=== PATIENT | female | born 1960 | race Caucasian/White ===

== ENCOUNTER 2019-01-27 17:54 | Emergency (ER) | payer BC ==
[2019-01-27 18:43] LABS: Absolute Lymphocytes (CBC) 3.1 K/uL (0.7-4.9); Basophils % 1.4 % (0-1.3); Eosinophils % 3.3 % (0-4.4); Hematocrit 42.2 % (36.0-45.0); Lymphocytes % 47.4 % (15.3-44.8); MPV 8.9 fL (7.6-11.3); Monocytes % 4.9 % (3.3-12.3); Protime INR 0.95; RBC Red Blood Cell Count 4.41 M/uL (3.86-4.86)
[2019-01-27 19:07] LABS: ALT/SGPT 25 U/L (12-78); AST/SGOT 25 U/L (15-37); Albumin 4.1 g/dL (3.4-5.0); Alkaline Phosphatase 56 U/L (45-117); BUN Blood Urea Nitrogen 12 mg/dL (7-18); Bicarbonate 28 mmol/L (21-32); Bilirubin Direct 0.1 mg/dL (0-0.2); Bilirubin Total 0.6 mg/dL (0.2-1.0); Glucose Level 90 mg/dL (74-106); Magnesium 2.4 mg/dL (1.8-2.4); NT PRO-BNP 32 pg/mL (<125); Potassium 3.4 mmol/L (3.5-5.1); Protein, Total 7.4 g/dL (6.4-8.2); Sodium Level 141 mmol/L (136-145); Troponin (Emerg Dept Use Only) < 0.02 ng/mL (0.0-0.045)
[2019-01-27 19:15] LABS: Blood Morphology Comment NOT SEEN (NOT SEEN); Platelet Estimate ADEQ
--- NOTE | 2019-01-27 19:20 | RAD REPORT ---
EXAM DESCRIPTION: Tracy Single View01/27/2019 7:05 pm CLINICAL HISTORY: Chest pain COMPARISON: 2017 FINDINGS: The lungs appear clear of acute infiltrate. The heart is upper limits normal size IMPRESSION: No acute abnormalities displayed
[2019-01-27] MEDS ORDERED: FENTANYL CITR 100 MCG/2 ML ONE (21:06)
[2019-01-27] MEDS ORDERED: ONDANSETRON 4 MG/2 ML VIAL ONE (21:51)
--- NOTE | 2019-01-27 23:03 | ER ---
Nurse's Notes [facility] Name: Candice Vega Age: 58 yrs Sex: Female : 1960 Arrival Date: 01/27/2019 Time: 17:55 Bed 27 Private MD: Gee Guajardo F Diagnosis: Pain in left arm Presentation: 01/27 18:00 Presenting complaint: Patient states: pain to left scapula to left shoulder and pt c/o aa5 pain to left side of chest and radiating to left arm. Pt c/o nausea, denies vomiting. Transition of care: patient was not received from another setting of care. Onset of symptoms was January 27, 2019. Risk Assessment: Do you want to hurt yourself or someone else? Patient reports no desire to harm self or others. Initial Sepsis Screen: Does the patient meet any 2 criteria? No. Patient's initial sepsis screen is negative. Does the patient have a suspected source of infection? No. Patient's initial sepsis screen is negative. Care prior to arrival: None. 18:00 Method Of Arrival: Ambulatory aa5 18:00 Acuity: VICTOR MANUEL 2 aa5 Historical: - Allergies: 18:03 Azithromycin; aa5 18:03 Codeine; aa5 18:03 PENICILLINS; aa5 18:03 mushrooms; aa5 - Home Meds: 18:03 lisinopril 10 mg Oral tab 1 tab once daily [Active]; levothyroxine oral 1.25 once daily aa5 [Active]; - PMHx: 18:03 Hypertension; Hypothyroidism; DVT; PE; aa5 - PSHx: 18:03 lap band; Knee surgery; Cholecystectomy; left leg- tumor removed; Thyroidectomy; aa5 Hysterectomy; ; Appendectomy; Tonsillectomy; - Immunization history:: Adult Immunizations up to date. - Social history:: Smoking status: Patient/guardian denies using tobacco. - Ebola Screening: : No symptoms or risks identified at this time. Screenin:25 Abuse screen: Denies threats or abuse. Denies injuries from another. Nutritional rv screening: No deficits noted. Tuberculosis screening: No symptoms or risk factors identified. Fall Risk None identified. Assessment: 18:23 General: Appears in no apparent distress. uncomfortable, Behavior is calm, cooperative. rv Pain: Complains of pain in back Pain radiates to chest and left arm Pain began 1 day ago. Neuro: Level of Consciousness is awake, alert, obeys commands, Oriented to person, place, time, situation. Cardiovascular: Patient's skin is warm and dry. Cardiovascular: Rhythm is regular. Respiratory: Airway is patent. GI: No signs and/or symptoms were reported involving the gastrointestinal system. : No signs and/or symptoms were reported regarding the genitourinary system. EENT: No signs and/or symptoms were reported regarding the EENT system. Derm: Skin is intact. 20:00 Reassessment: Patient appears in no apparent distress at this time. No changes from ca1 previously documented assessment. Patient and/or family updated on plan of care and expected duration. Pain level reassessed. Patient is alert, oriented x 3, equal unlabored respirations, skin warm/dry/pink. Vital Signs: 18:03 BP 162 / 92; Pulse 58; Resp 16 S; Temp 98.6(TE); Pulse Ox 98% on R/A; Weight 95.25 kg aa5 (R); Height 5 ft. 3 in. (160.02 cm) (R); Pain 7/10; 19:00 BP 145 / 83; Pulse 55; Resp 15; Pulse Ox 98% ; ca1 20:00 BP 147 / 82; Pulse 56; Resp 15; Pulse Ox 98% on R/A; ca1 21:00 BP 132 / 80; Pulse 51; Resp 16; Pulse Ox 96% on R/A; ca1 22:00 BP 110 / 61; Pulse 49; Resp 15; Pulse Ox 96% on R/A; rv 23:00 BP 109 / 69; Pulse 50; Resp 15; Temp 98.4; Pulse Ox 97% on R/A; rv 18:03 Body Mass Index 37.20 (95.25 kg, 160.02 cm) aa5 ED Course: 17:55 Patient arrived in ED. rg4 17:56 Gee Guajardo MD is Private Physician. rg4 18:00 Triage completed. aa5 18:00 Arm band placed on. aa5 18:19 Gerson Johnston, ETHAN is Primary Nurse. rv 18:19 EKG done, by ED staff, reviewed by John STANFORD. Inserted saline lock: 20 gauge in rv right antecubital area, using aseptic technique. Blood collected. 18:25 Patient has correct armband on for positive identification. Placed in gown. Bed in low rv position. Call light in reach. Side rails up X 1. Adult w/ patient. six color press operator on. Pulse ox on. NIBP on. 18:26 John English PA is PHCP. jr8 18:26 Christophe Herrera MD is Attending Physician. jr8 18:26 Patient maintains SpO2 saturation greater than 95% on room air. rv 19:06 John English PA is PHCP. jr8 19:07 Christophe Herrera MD is Attending Physician. jr8 19:11 XRAY Chest (1 view) In Process Unspecified. EDMS 21:11 CT completed. Patient tolerated procedure well. Patient moved to CT. Patient moved back de from CT. 21:18 CT Chest For PE Angio In Process Unspecified. EDMS 23:00 Gee Guajardo MD is Referral Physician. jr8 23:00 Peter Silverman MD is Referral Physician. jr8 23:13 No provider procedures requiring assistance completed. IV discontinued, intact, rv bleeding controlled, No redness/swelling at site. Pressure dressing applied. Administered Medications: 20:52 Drug: fentaNYL (PF) 50 mcg Route: IVP; Site: right antecubital; ca1 23:12 Follow up: Response: Pain is decreased rv 22:00 Drug: Zofran 4 mg Route: IVP; Site: right antecubital; rv 23:13 Follow up: Response: No adverse reaction; Marked relief of symptoms rv Outcome: 23:00 Discharge ordered by . jr8 23:13 Discharged to home ambulatory. rv 23:13 Condition: improved 23:13 Discharge instructions given to patient, family, Instructed on discharge instructions, follow up and referral plans. medication usage, Demonstrated understanding of instructions, follow-up care, medications, Prescriptions given X 3. 23:14 Patient left the ED. rv Signatures: Dispatcher [employer] EDRI Margarita Lee RN RN aa5 John English PA PA jr8 Afia Pope rg4 Braxton Aguilar Ronaldo, RN RN rv Ebony Rosario RN RN ca1
--- NOTE | 2019-01-27 23:03 | EDPHYS ---
Physician Documentation [facility] Name: Candice Vega Age: 58 yrs Sex: Female : 1960 Arrival Date: 01/27/2019 Time: 17:55 Bed 27 Private MD: Gee Guajardo F ED Physician Christophe Herrera HPI: 01/27 20:15 This 58 yrs old Female presents to ER via Ambulatory with complaints of Chest jr8 Pain, Back Pain, Nausea, Arm Pain. 20:15 left upper back pain x 1 week with radiation to left arm. Now with radiation to left jr8 anterior chest since last night. Onset: The symptoms/episode began/occurred acutely, 1 week(s) ago, and became worse last night. Severity of symptoms: At their worst the symptoms were moderate in the emergency department the symptoms are unchanged. The patient has not experienced similar symptoms in the past. The patient has not recently seen a physician. Historical: - Allergies: 18:03 Azithromycin; aa5 18:03 Codeine; aa5 18:03 PENICILLINS; aa5 18:03 mushrooms; aa5 - Home Meds: 18:03 lisinopril 10 mg Oral tab 1 tab once daily [Active]; levothyroxine oral 1.25 once daily aa5 [Active]; - PMHx: 18:03 Hypertension; Hypothyroidism; DVT; PE; aa5 - PSHx: 18:03 lap band; Knee surgery; Cholecystectomy; left leg- tumor removed; Thyroidectomy; aa5 Hysterectomy; ; Appendectomy; Tonsillectomy; - Immunization history:: Adult Immunizations up to date. - Social history:: Smoking status: Patient/guardian denies using tobacco. - Ebola Screening: : No symptoms or risks identified at this time. ROS: 20:15 Constitutional: Negative for fever, chills, and weight loss, Eyes: Negative for injury, jr8 pain, redness, and discharge, ENT: Negative for injury, pain, and discharge, Neck: Negative for injury, pain, and swelling, Respiratory: Negative for shortness of breath, cough, wheezing, and pleuritic chest pain, Abdomen/GI: Negative for abdominal pain, nausea, vomiting, diarrhea, and constipation, Skin: Negative for injury, rash, and discoloration, Neuro: Negative for headache, weakness, numbness, tingling, and seizure. 20:15 Cardiovascular: Positive for chest pain, Negative for edema, orthopnea, palpitations. 20:15 Back: Positive for pain at rest, pain with movement, Negative for injury or acute deformity, decreased range of motion. 20:15 MS/extremity: Positive for pain, Negative for injury or acute deformity, decreased range of motion, deformity, paresthesias, tingling. Exam: 20:15 Constitutional: This is a well developed, well nourished patient who is awake, alert, jr8 and in no acute distress. Head/Face: Normocephalic, atraumatic. Eyes: Pupils equal round and reactive to light, extra-ocular motions intact. Lids and lashes normal. Conjunctiva and sclera are non-icteric and not injected. Cornea within normal limits. Periorbital areas with no swelling, redness, or edema. ENT: Nares patent. No nasal discharge, no septal abnormalities noted. Tympanic membranes are normal and external auditory canals are clear. Oropharynx with no redness, swelling, or masses, exudates, or evidence of obstruction, uvula midline. Mucous membranes moist. Neck: Trachea midline, no thyromegaly or masses palpated, and no cervical lymphadenopathy. Supple, full range of motion without nuchal rigidity, or vertebral point tenderness. No Meningismus. Chest/axilla: Normal chest wall appearance and motion. Nontender with no deformity. No lesions are appreciated. Cardiovascular: Regular rate and rhythm with a normal S1 and S2. No gallops, murmurs, or rubs. Normal PMI, no JVD. No pulse deficits. Respiratory: Lungs have equal breath sounds bilaterally, clear to auscultation and percussion. No rales, rhonchi or wheezes noted. No increased work of breathing, no retractions or nasal flaring. Abdomen/GI: Soft, non-tender, with normal bowel sounds. No distension or tympany. No guarding or rebound. No evidence of tenderness throughout. Back: No spinal tenderness. No costovertebral tenderness. Full range of motion. Skin: Warm, dry with normal turgor. Normal color with no rashes, no lesions, and no evidence of cellulitis. MS/ Extremity: Pulses equal, no cyanosis. Neurovascular intact. Full, normal range of motion. Neuro: Awake and alert, GCS 15, oriented to person, place, time, and situation. Cranial nerves II-XII grossly intact. Motor strength 5/5 in all extremities. Sensory grossly intact. Cerebellar exam normal. Normal gait. Vital Signs: 18:03 BP 162 / 92; Pulse 58; Resp 16 S; Temp 98.6(TE); Pulse Ox 98% on R/A; Weight 95.25 kg aa5 (R); Height 5 ft. 3 in. (160.02 cm) (R); Pain 7/10; 19:00 BP 145 / 83; Pulse 55; Resp 15; Pulse Ox 98% ; ca1 20:00 BP 147 / 82; Pulse 56; Resp 15; Pulse Ox 98% on R/A; ca1 21:00 BP 132 / 80; Pulse 51; Resp 16; Pulse Ox 96% on R/A; ca1 22:00 BP 110 / 61; Pulse 49; Resp 15; Pulse Ox 96% on R/A; rv 23:00 BP 109 / 69; Pulse 50; Resp 15; Temp 98.4; Pulse Ox 97% on R/A; rv 18:03 Body Mass Index 37.20 (95.25 kg, 160.02 cm) aa5 MDM: 18:26 Patient medically screened. jr8 20:15 Data reviewed: vital signs, nurses notes, EKG. Data interpreted: Pulse oximetry: on jr8 room air is 98 %. Interpretation: normal. 22:55 Data reviewed: lab test result(s), radiologic studies, CT scan, plain films. jr8 Counseling: I had a detailed discussion with the patient and/or guardian regarding: the historical points, exam findings, and any diagnostic results supporting the discharge/admit diagnosis, lab results, radiology results, the need for outpatient follow up, a director of rehabilitation and wellness, a neurologist, to return to the emergency department if symptoms worsen or persist or if there are any questions or concerns that arise at home. Response to treatment: the patient's symptoms have mildly improved after treatment. ED course: Discussed with patient that this is more then likely neuropathic like pain. No acute findings on labs or imaging. Did find mild aortic root dilation which was discussed with patient and family and need for f/u with director of rehabilitation and wellness for routine evaluation to insure it does not enlarge. Family and patient good with plan and will f/u. If pain does not get better requested that she seen neurologist which she said she would do as well . 01/27 18:26 Order name: Basic Metabolic Panel; Complete Time: 19:08 01/27 18:26 Order name: CBC with Diff; Complete Time: 19:19 01/27 18:26 Order name: LFT's; Complete Time: 19:08 01/27 18:26 Order name: Magnesium; Complete Time: 19:08 01/27 18:26 Order name: NT PRO-BNP; Complete Time: 19:08 01/27 18:26 Order name: PT-INR 01/27 18:26 Order name: Troponin (emerg Dept Use Only); Complete Time: 19:08 01/27 18:26 Order name: XRAY Chest (1 view); Complete Time: 19:34 01/27 18:26 Order name: EKG; Complete Time: 18:28 01/27 18:26 Order name: Cardiac monitoring; Complete Time: 18:46 01/27 18:50 Order name: Manual Differential; Complete Time: 19:19 EDMS 01/27 20:47 Order name: CT Chest For PE Angio 01/27 18:26 Order name: EKG - Nurse/Tech; Complete Time: 18:46 01/27 18:26 Order name: IV Saline Lock; Complete Time: 18:46 01/27 18:26 Order name: Labs collected and sent; Complete Time: 18:46 01/27 18:26 Order name: O2 Per Protocol; Complete Time: 18:46 01/27 18:26 Order name: O2 Sat Monitoring; Complete Time: 18:46 EC:15 Rate is 55 beats/min. Rhythm is regular. WI interval is normal at 144 msec. QRS jr8 interval is normal at 86 msec. QT interval is normal at 361 msec. No Q waves. T waves are Normal. No ST changes noted. Clinical impression: Sinus bradycardia. Administered Medications: 20:52 Drug: fentaNYL (PF) 50 mcg Route: IVP; Site: right antecubital; ca1 23:12 Follow up: Response: Pain is decreased rv 22:00 Drug: Zofran 4 mg Route: IVP; Site: right antecubital; rv 23:13 Follow up: Response: No adverse reaction; Marked relief of symptoms rv Disposition: 01/27/19 23:00 Discharged to Home. Impression: Pain in left arm. - Condition is Stable. - Discharge Instructions: Musculoskeletal Pain, Pain Without a Known Cause. - Prescriptions for Mobic 7.5 mg Oral Tablet - take 1 tablet by ORAL route once daily take with food; 20 tablet. Skelaxin 800 mg Oral Tablet - take 1 tablet by ORAL route every 8 hours As needed; 30 tablet. Medrol (Santos) 4 mg Oral Tablets, Dose Pack - take 1 tablet by ORAL route as directed - follow package instructions; 1 packet. - Medication Reconciliation Form, Thank You Letter, Antibiotic Education, Prescription Opioid Use, Work release form form. - Follow up: Gee Guajardo MD; When: 5 - 6 days; Reason: Recheck today's complaints, Continuance of care, Re-evaluation by your physician. Follow up: Peter Silverman MD; When: 2 - 3 days; Reason: Recheck today's complaints, Continuance of care, Re-evaluation by your physician. - Problem is new. - Symptoms have improved. Addendum: 02/03/2019 19:00 Co-signature as Attending Physician, Christophe Herrera MD Available for consultation at p s1 all times . Signatures: Dispatcher [employer] Margarita Thompson RN RN aa5 John English PA PA jr8 Christophe Herrera MD MD ps1 Gerson Johnston RN RN rv Ebony Rosario RN RN ca1 Corrections: (The following items were deleted from the chart) 01/27 23:14 23:00 01/27/2019 23:00 Discharged to Home. Impression: Pain in left arm. Condition is rv Stable. Forms are Medication Reconciliation Form, Thank You Letter, Antibiotic Education, Prescription Opioid Use. Follow up: Gee Guajardo; When: 5 - 6 days; Reason: Recheck today's complaints, Continuance of care, Re-evaluation by your physician. Follow up: Peter Silverman; When: 2 - 3 days; Reason: Recheck today's complaints, Continuance of care, Re-evaluation by your physician. Problem is new. Symptoms have improved. jr8
--- NOTE | 2019-01-28 08:14 | EKG ---
Test Date: 2019-01-27 Test Time: 18:09:35 Adzing And Boring Machine Helper: BRIGITTE MEASUREMENT RESULTS: Intervals: Rate: 55 AL: 144 QRSD: 86 QT: 378 QTc: 361 [place]: P: 49 AL: 144 QRS: -31 T: 57 INTERPRETIVE STATEMENTS: Sinus bradycardia Left axis deviation Nonspecific T wave abnormality Abnormal ECG Electronically Signed On 01-28-19 08:11:38 CDT by Brain Tolbert
--- NOTE | 2019-01-28 08:14 | EKG ---
Test Date: 2019-01-27 Test Time: 18:09:03 Wireless Sales Consultant: BRIGITTE MEASUREMENT RESULTS: Intervals: Rate: 52 TN: 138 QRSD: 84 QT: 400 QTc: 372 [place]: P: 53 TN: 138 QRS: -26 T: -21 INTERPRETIVE STATEMENTS: Sinus bradycardia with sinus arrhythmia Nonspecific T wave abnormality Abnormal ECG Compared to ECG 11/11/2016 12:32:44 T-wave abnormality now present Sinus rhythm no longer present Left-axis deviation no longer present Electronically Signed On 01-28-19 08:11:39 CDT by Brain Tolbert
[2019-01-28 09:14] VITALS: BP 109/69; TEMP 98.4; O2SAT 97
--- NOTE | 2019-01-28 09:53 | RAD REPORT ---
EXAM DESCRIPTION: Copy and paste - Chest For Pe Angio - 01/28/2019 2:46 am CLINICAL HISTORY: 58 years Female CHEST PAIN COMPARISON: None TECHNIQUE: CT angiogram of the chest was performed. Images were obtained in axial, sagittal, and cor onal planes. Intravenous contrast was administered. This exam was performed according to our departmental dose-optimization program which includes use of Automated Exposure Control, adjustment of the mA and/or kV according to patient size and/or use of i terative reconstruction technique. FINDINGS: No filling defects pulmonary arteries bilaterally. Aortic root is dilated measuring 4.3 cm in greatest dimension. No aortic dissection. Enlarged heart. No pericardial or pleural effusions bilaterally. No pneumothorax. Increased pulmonary vascularity. Mild groundglass attenuation lung calles bilaterall y. No consolidation. No lung parenchymal infiltrates or nodules seen. Bullous change lateral left upp er lobe. Surgical clips thoracic inlet. No adenopathy. No acute osseous abnormality. Prior cholecystectomy. No abnormality upper abdomen. IMPRESSION: No evidence for pulmonary embolus. Dilated aortic root with no evidence for aortic disse ction. Moderate pulmonary congestion. No infiltrates seen. Electronically signed by: Adrienne Aviles MD 01/27/2019 9:39 PM CDT Due to temporary technical issues with the PACS/Fluency reporting system, reports are being signed by the in house radiologist as a courtesy to ensure prompt reporting. The interpreting radiologist is f ully responsible for the content of the report.
== END 2019-01-27 23:14 | disposition home or self-care (01) ==
LOC: ER 17:54
DX: M79.602 Pain in left arm (principal); I10 Essential (primary) hypertension; E03.9 Hypothyroidism, unspecified; Z86.718 Personal history of other venous thrombosis and embolism; Z86.711 Personal history of pulmonary embolism; Z88.1 Allergy status to other antibiotic agents; Z88.5 Allergy status to narcotic agent; Z88.0 Allergy status to penicillin
CPT/HCPCS: 36415; 71045; 71275; 80048; 80076; 83735; 83880; 84484; 85025; 85610; 93005; 96374; 96375; 99285; J2405; J3010; Q9967

== ENCOUNTER 2023-05-11 13:25 | Emergency (ER) | payer BC ==
--- OUTSIDE RECORDS SUMMARY | 2023-05-11 13:29 | XMS REPORT | Continuity of Care Document ---
:1960 Author Organization [facility] t Address [address] [facility] [place]. [address] [place] [id number] Care Team Providers Name Role Phone Pepe Brambila Attending Clinician Unavailable Payers Payer Name Policy Type Policy Number Effective Date Expiration Date S justus [employer] 6 [id number] 2020 Common [facility] t [employer] Shield of 00:00:00 - [facility] Problems Condition Condition Condition Status Onset Resolution Last Treating Co mments Source Name Details Category Date Date Treatment Clinician Date [id number] Subacute Problem Com mon [id number] vaginitis [facility] [id number] Recurrent Problem Com mon UTI [facility] [id number] Left flank Problem Com mon tenderness [facility] [id number] LUQ pain Problem Comm on [facility] [id number] Lower Problem Common urinary [facility] tract - 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[facility] 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 y [facility] [id number] History of Problem Co mmon pulmonary [facility] embolism - [facility] [id number] Morbid Problem Commo n 9104 (severe) Spirit obesity - [facility] due to [facility] [id number] PUD Problem Common (peptic Spirit ulcer - [facility] disease) [facility] [id number] Fatty Problem Common liver Spirit disease, - [facility] nonalcohol [facility] [id number] Postoperat Problem Com mon steffanie Spirit hypothyroi - [facility] dism [facility] [id number] History of Problem C ommon 08906 Graves' [facility] disease - [facility] Allergies, Adverse Reactions, Alerts Allergy Allergy Status Severity Reaction(s) Onset Inactive Treating Comm ents Source Name Type Date Date Clinician codeine codeine Active hives Common [facility] erythrom erythrom Active hives Common ycin ycin [facility] penicill penicill Active hives Common in G in G [facility] Social History Social Habit Start Date Stop Date Quantity Comments Source History of Tobacco Use Co mmon Spirit [facility] Sex Assigned At Com mon [facility] Smoking Status Start Date Stop Date Source Never Smoker [facility] Medications Ordered Filled Start Stop Current Ordering Indication Dosage Frequency Signature Comments Components Source Medication Medication Date Date Medication? Clinician (SIG) Name Name Cipro 500 Cipro 500 No 1{table BID Cipro 500 MG MG 2-13 t} MG 00:00: 00 Cipro 500 Cipro 500 0 No 1{table BID Cipro 500 MG MG 2-13 t} MG 00:00: 00 Alfuzosin Alfuzosin 2021-07- No 1{table QD Alfuzosin HCl ER 10 HCl ER 10 08-29 t_immed HCl ER 10 MG MG 00:00: 00:00 iately_ MG 00 :00 after_t he_same _meal} Alfuzosin Alfuzosin 2021-07- No 1{table QD Alfuzosin HCl ER 10 HCl ER 10 08-29 t_immed HCl ER 10 MG MG 00:00: 00:00 iately_ MG 00 :00 after_t he_same _meal} Alfuzosin Alfuzosin 2021-07- No 1{table QD Alfuzosin HCl ER 10 HCl ER 10 08-29 t_immed HCl ER 10 MG MG 00:00: 00:00 iately_ MG 00 :00 after_t he_same _meal} Alfuzosin Alfuzosin 2021-07- No 1{table QD Alfuzosin HCl ER 10 HCl ER 10 08-29 t_immed HCl ER 10 MG MG 00:00: 00:00 iately_ MG 00 :00 after_t he_same _meal} Clotrimazol Clotrimazol 2021-07- No 1{appli BID Clotrimazo e-Betametha e-Betametha 08-29 cation} le-Betamet sone 1-0.05 sone 1-0.05 00:00: 00:00 hasone % % 00 :00 1-0.05 % Clotrimazol Clotrimazol 2021-07- No 1{appli BID Clotrimazo e-Betametha e-Betametha 08-29 cation} le-Betamet sone 1-0.05 sone 1-0.05 00:00: 00:00 hasone % % 00 :00 1-0.05 % Alfuzosin Alfuzosin 2021- No 1{table QD Alfuzosin HCl ER 10 HCl ER 10 12-26 t_immed HCl ER 10 MG MG 00:00: 00:00 iately_ MG 00 :00 after_t he_same _meal} Alfuzosin Alfuzosin 2021- No 1{table QD Alfuzosin HCl ER 10 HCl ER 10 12-26 t_immed HCl ER 10 MG MG 00:00: 00:00 iately_ MG 00 :00 after_t he_same _meal} Alfuzosin Alfuzosin 2021-2021- No 1{table QD Alfuzosin HCl ER 10 HCl ER 10 12-26 t_immed HCl ER 10 MG MG 00:00: 00:00 iately_ MG 00 :00 after_t he_same _meal} Alfuzosin Alfuzosin 2021- No 1{table QD Alfuzosin HCl ER 10 HCl ER 10 12-26 t_immed HCl ER 10 MG MG 00:00: 00:00 iately_ MG 00 :00 after_t he_same _meal} Alfuzosin Alfuzosin 2021- No 1{table QD Alfuzosin HCl ER 10 HCl ER 10 12-26 t_immed HCl ER 10 MG MG 00:00: 00:00 iately_ MG 00 :00 after_t he_same _meal} Alfuzosin Alfuzosin 2021- No 1{table QD Alfuzosin HCl ER 10 HCl ER 10 12-26 t_immed HCl ER 10 MG MG 00:00: 00:00 iately_ MG 00 :00 after_t he_same _meal} Clotrimazol Clotrimazol 2021- No 1{appli QD Clotrimazo e-Betametha e-Betametha 12-26 cation_ le-Betamet sone 1-0.05 sone 1-0.05 00:00: 00:00 at_bedt hasone % % 00 :00 zachary} 1-0.05 % Clotrimazol Clotrimazol 2021- No 1{appli QD Clotrimazo e-Betametha e-Betametha 12-26 cation_ le-Betamet sone 1-0.05 sone 1-0.05 00:00: 00:00 at_bedt hasone % % 00 :00 zachary} 1-0.05 % Fluconazole Fluconazole 2021- No 1{table Fluconazol 150 MG 150 MG 10-20 t} e 150 MG 00:00: 00:00 00 :00 Sulfamethox Sulfamethox 2021- No 1{table BID Sulfametho azole-Trime azole-Trime 08-31 t} xazole-Tri thoprim thoprim 00:00: 00:00 methoprim 800-160 MG 800-160 MG 00 :00 800-160 MG Synthroid Synthroid No QD Synthroid 112 MCG 112 MCG 1-27 112 MCG 00:00: 00 Synthroid Synthroid No QD Synthroid 112 MCG 112 MCG 1-27 112 MCG 00:00: 00 Synthroid Synthroid No QD Synthroid 112 MCG 112 MCG 1-27 112 MCG 00:00: 00 Omeprazole Omeprazole No Omeprazole 20 MG 20 MG 20 MG Levothyroxi Levothyroxi No Levothyrox ne Sodium ne Sodium ine Sodium 125 MCG 125 MCG 125 MCG Levothyroxi Levothyroxi No QD Levothyrox ne Sodium ne Sodium ine Sodium 125 MCG 125 MCG 125 MCG Famotidine Famotidine No Famotidine 20 MG 20 MG 20 MG Lisinopril Lisinopril No Lisinopril 10 MG 10 MG 10 MG Ferrous Ferrous No 1{table QD Ferrous Sulfate 325 Sulfate 325 t} Sulfate (65 Fe) MG (65 Fe) MG 325 (65 Fe) MG Lisinopril Lisinopril No 1{table QD Lisinopril 10 MG 10 MG t} 10 MG Lisinopril Lisinopril No Lisinopril 10 MG 10 MG 10 MG Famotidine Famotidine No Famotidine 20 MG 20 MG 20 MG Omeprazole Omeprazole No Omeprazole 20 MG 20 MG 20 MG Levothyroxi Levothyroxi No Levothyrox ne Sodium ne Sodium ine Sodium 125 MCG 125 MCG 125 MCG Ferrous Ferrous No 1{table QD Ferrous Sulfate 325 Sulfate 325 t} Sulfate (65 Fe) MG (65 Fe) MG 325 (65 Fe) MG Lisinopril Lisinopril No 1{table QD Lisinopril 10 MG 10 MG t} 10 MG Famotidine Famotidine No Famotidine 20 MG 20 MG 20 MG Lisinopril Lisinopril No Lisinopril 10 MG 10 MG 10 MG Levothyroxi Levothyroxi No Levothyrox ne Sodium ne Sodium ine Sodium 125 MCG 125 MCG 125 MCG Omeprazole Omeprazole No Omeprazole 20 MG 20 MG 20 MG Lisinopril Lisinopril No 1{table QD Lisinopril 10 MG 10 MG t} 10 MG Ferrous Ferrous No 1{table QD Ferrous Sulfate 325 Sulfate 325 t} Sulfate (65 Fe) MG (65 Fe) MG 325 (65 Fe) MG Famotidine Famotidine No Famotidine 20 MG 20 MG 20 MG Ferrous Ferrous No 1{table QD Ferrous Sulfate 325 Sulfate 325 t} Sulfate (65 Fe) MG (65 Fe) MG 325 (65 Fe) MG Lisinopril Lisinopril No Lisinopril 10 MG 10 MG 10 MG Omeprazole Omeprazole No Omeprazole 20 MG 20 MG 20 MG Lisinopril Lisinopril No 1{table QD Lisinopril 10 MG 10 MG t} 10 MG Levothyroxi Levothyroxi No Levothyrox ne Sodium ne Sodium ine Sodium 125 MCG 125 MCG 125 MCG Lisinopril Lisinopril No 1{table QD Lisinopril 10 MG 10 MG t} 10 MG Levothyroxi Levothyroxi No Levothyrox ne Sodium ne Sodium ine Sodium 125 MCG 125 MCG 125 MCG Lisinopril Lisinopril No Lisinopril 10 MG 10 MG 10 MG Omeprazole Omeprazole No Omeprazole 20 MG 20 MG 20 MG Famotidine Famotidine No Famotidine 20 MG 20 MG 20 MG Lisinopril Lisinopril No 1{table QD Lisinopril 10 MG 10 MG t} 10 MG Famotidine Famotidine No Famotidine 20 MG 20 MG 20 MG Levothyroxi Levothyroxi No Levothyrox ne Sodium ne Sodium ine Sodium 125 MCG 125 MCG 125 MCG Omeprazole Omeprazole No Omeprazole 20 MG 20 MG 20 MG Lisinopril Lisinopril No Lisinopril 10 MG 10 MG 10 MG Omeprazole Omeprazole No Omeprazole 20 MG 20 MG 20 MG Levothyroxi Levothyroxi No Levothyrox ne Sodium ne Sodium ine Sodium 125 MCG 125 MCG 125 MCG Lisinopril Lisinopril No 1{table QD Lisinopril 10 MG 10 MG t} 10 MG Famotidine Famotidine No Famotidine 20 MG 20 MG 20 MG Lisinopril Lisinopril No Lisinopril 10 MG 10 MG 10 MG Famotidine Famotidine No Famotidine 20 MG 20 MG 20 MG Lisinopril Lisinopril No 1{table QD Lisinopril 10 MG 10 MG t} 10 MG Levothyroxi Levothyroxi No Levothyrox ne Sodium ne Sodium ine Sodium 125 MCG 125 MCG 125 MCG Lisinopril Lisinopril No Lisinopril 10 MG 10 MG 10 MG Omeprazole Omeprazole No Omeprazole 20 MG 20 MG 20 MG Omeprazole Omeprazole No Omeprazole 20 MG 20 MG 20 MG Levothyroxi Levothyroxi No Levothyrox ne Sodium ne Sodium ine Sodium 125 MCG 125 MCG 125 MCG Famotidine Famotidine No Famotidine 20 MG 20 MG 20 MG Lisinopril Lisinopril No Lisinopril 10 MG 10 MG 10 MG Lisinopril Lisinopril No Lisinopril 10 MG 10 MG 10 MG Famotidine Famotidine No Famotidine 20 MG 20 MG 20 MG Lisinopril Lisinopril No 1{table QD Lisinopril 10 MG 10 MG t} 10 MG Levothyroxi Levothyroxi No QD Levothyrox ne Sodium ne Sodium ine Sodium 100 MCG 100 MCG 100 MCG Omeprazole Omeprazole No Omeprazole 20 MG 20 MG 20 MG Lisinopril Lisinopril No Lisinopril 10 MG 10 MG 10 MG Famotidine Famotidine No Famotidine 20 MG 20 MG 20 MG Lisinopril Lisinopril No 1{table QD Lisinopril 10 MG 10 MG t} 10 MG Levothyroxi Levothyroxi No QD Levothyrox ne Sodium ne Sodium ine Sodium 100 MCG 100 MCG 100 MCG Omeprazole Omeprazole No Omeprazole 20 MG 20 MG 20 MG Lisinopril Lisinopril No Lisinopril 10 MG 10 MG 10 MG Lisinopril Lisinopril No 1{table QD Lisinopril 10 MG 10 MG t} 10 MG Omeprazole Omeprazole No Omeprazole 20 MG 20 MG 20 MG Levothyroxi Levothyroxi No QD Levothyrox ne Sodium ne Sodium ine Sodium 100 MCG 100 MCG 100 MCG Famotidine Famotidine No Famotidine 20 MG 20 MG 20 MG Omeprazole Omeprazole No Omeprazole 20 MG 20 MG 20 MG Levothyroxi Levothyroxi No QD Levothyrox ne Sodium ne Sodium ine Sodium 100 MCG 100 MCG 100 MCG Lisinopril Lisinopril No 1{table QD Lisinopril 10 MG 10 MG t} 10 MG Lisinopril Lisinopril No Lisinopril 10 MG 10 MG 10 MG Famotidine Famotidine No Famotidine 20 MG 20 MG 20 MG Levothyroxi Levothyroxi No Levothyrox ne Sodium ne Sodium ine Sodium 100 MCG 100 MCG 100 MCG Lisinopril Lisinopril No Lisinopril 10 MG 10 MG 10 MG Lisinopril Lisinopril No 1{table QD Lisinopril 10 MG 10 MG t} 10 MG Levothyroxi Levothyroxi No Levothyrox ne Sodium ne Sodium ine Sodium 100 MCG 100 MCG 100 MCG Famotidine Famotidine No Famotidine 20 MG 20 MG 20 MG Levothyroxi Levothyroxi No QD Levothyrox ne Sodium ne Sodium ine Sodium 100 MCG 100 MCG 100 MCG Omeprazole Omeprazole No Omeprazole 20 MG 20 MG 20 MG Lisinopril Lisinopril No Lisinopril 10 MG 10 MG 10 MG Lisinopril Lisinopril No 1{table QD Lisinopril 10 MG 10 MG t} 10 MG Levothyroxi Levothyroxi No Levothyrox ne Sodium ne Sodium ine Sodium 100 MCG 100 MCG 100 MCG Famotidine Famotidine No Famotidine 20 MG 20 MG 20 MG Levothyroxi Levothyroxi No QD Levothyrox ne Sodium ne Sodium ine Sodium 100 MCG 100 MCG 100 MCG Omeprazole Omeprazole No Omeprazole 20 MG 20 MG 20 MG Lisinopril Lisinopril No Lisinopril 10 MG 10 MG 10 MG Famotidine Famotidine No Famotidine 20 MG 20 MG 20 MG Lisinopril Lisinopril No 1{table QD Lisinopril 10 MG 10 MG t} 10 MG Levothyroxi Levothyroxi No QD Levothyrox ne Sodium ne Sodium ine Sodium 100 MCG 100 MCG 100 MCG Omeprazole Omeprazole No Omeprazole 20 MG 20 MG 20 MG Immunizations Ordered Filled Immunization Date Status Comments Sourc e Immunization Name Name Afluria Afluria 2021-04-27 Completed [facility] 14:49:00 - [facility] Afluria Afluria 2021-04-27 Completed [facility] 14:49:00 - [facility] Afluria Afluria 2021-04-27 Completed [facility] 14:49:00 - [facility] Afluria Afluria 2021-04-27 Completed [facility] 14:49:00 - [facility] Afluria Afluria 2021-04-27 Completed [facility] 14:49:00 - [facility] Afluria Afluria 2021-04-27 Completed [facility] 14:49:00 - [facility] Afluria Afluria 2021-04-27 Completed [facility] 14:49:00 - [facility] Afluria Afluria 2021-04-27 Completed [facility] 14:49:00 - [facility] Afluria Afluria 2021-04-27 Completed [facility] 14:49:00 - [facility] Afluria Afluria 2021-04-27 Completed [facility] 14:49:00 - [facility] Afluria Afluria 2021-04-27 Completed [facility] 14:49:00 - [facility] Afluria Afluria 2021-04-27 Completed [facility] 14:49:00 - [facility] Afluria Afluria 2021-04-27 Completed [facility] 14:49:00 - [facility] Afluria Afluria 2021-04-27 Completed [facility] 14:49:00 - [facility] Adacel (Tdap) Adacel (Tdap) 2020-10-28 Completed Common S pirit 15:20:00 - [facility] Adacel (Tdap) Adacel (Tdap) 2020-10-28 Completed Common S pirit 15:20:00 [facility] Adacel (Tdap) Adacel (Tdap) 2020-10-28 Completed Common S pirit 15:20:00 - [facility] Adacel (Tdap) Adacel (Tdap) 2020-10-28 Completed Common S pirit 15:20:00 - [facility] Adacel (Tdap) Adacel (Tdap) 2020-10-28 Completed Common S pirit 15:20:00 - [facility] Adacel (Tdap) Adacel (Tdap) 2020-10-28 Completed Common S pirit 15:20:00 - [facility] Adacel (Tdap) Adacel (Tdap) 2020-10-28 Completed Common S pirit 15:20:00 [facility] Adacel (Tdap) Adacel (Tdap) 2020-10-28 Completed Common S pirit 15:20:00 [facility] Adacel (Tdap) Adacel (Tdap) 2020-10-28 Completed Common S pirit 15:20:00 [facility] Adacel (Tdap) Adacel (Tdap) 2020-10-28 Completed Common S pirit 15:20:00 [facility] Adacel (Tdap) Adacel (Tdap) 2020-10-28 Completed Common S pirit 15:20:00 [facility] Adacel (Tdap) Adacel (Tdap) 2020-10-28 Completed Common S pirit 15:20:00 [facility] Adacel (Tdap) Adacel (Tdap) 2020-10-28 Completed Common S pirit 15:20:00 [facility] Adacel (Tdap) Adacel (Tdap) 2020-10-28 Completed Common S pirit 15:20:00 [facility] Afluria Afluria Unknown Completed [facility] Adacel (Tdap) Adacel (Tdap) Unknown Completed [facility] Afluria Afluria Unknown Completed [facility] Adacel (Tdap) Adacel (Tdap) Unknown Completed [facility] pirit [facility] Vital Signs Vital Name Observation Time Observation Value Comments Source height 2022-07-12 10:50:00 63 [in_i] [facility] weight 2022-07-12 10:50:00 231 [lb_av] [facility] temperature 2022-07-12 10:50:00 97.1 [degF] [facility] bmi 2022-07-12 10:50:00 40.92 kg/m2 Common S pirit - [facility] blood pressure 2022-07-12 10:50:00 138 mm[Hg] [facility] - systolic [facility] blood pressure 2022-07-12 10:50:00 72 mm[Hg] [facility] - diastolic [facility] height 2022-06-28 13:15:00 63 [in_i] Common S pirit - [facility] weight 2022-06-28 13:15:00 241 [lb_av] Common S pirit [facility] temperature 2022-06-28 13:15:00 97 [degF] Common S pirit [facility] bmi 2022-06-28 13:15:00 42.69 kg/m2 [facility] oximetry 2022-06-28 13:15:00 99 % Common S [facility] respiratory rate 2022-06-28 13:15:00 18 /min Comm on [facility] blood pressure 2022-06-28 13:15:00 160 mm[Hg] [facility] - systolic [facility] blood pressure 2022-06-28 13:15:00 75 mm[Hg] [facility] - diastolic [facility] height 2022-04-12 14:10:00 63 [in_i] Common [facility] weight 2022-04-12 14:10:00 238.7 [lb_av] Common [facility] - [facility] temperature 2022-04-12 14:10:00 97.1 [degF] Common S pirit [facility] bmi 2022-04-12 14:10:00 42.28 kg/m2 Common S [facility] oximetry 2022-04-12 14:10:00 96 % Common S [facility] respiratory rate 2022-04-12 14:10:00 17 /min Comm on [facility] blood pressure 2022-04-12 14:10:00 132 mm[Hg] [facility] - systolic [facility] blood pressure 2022-04-12 14:10:00 71 mm[Hg] Common [facility] - diastolic [facility] height 2021-12-27 16:20:00 63 [in_i] Common S pirit [facility] weight 2021-12-27 16:20:00 234.5 [lb_av] Common [facility] temperature 2021-12-27 16:20:00 97.8 [degF] Common S pirit [facility] bmi 2021-12-27 16:20:00 41.54 kg/m2 [facility] 2021-12-27 16:20:00 95 % Common S [facility] respiratory rate 2021-12-27 16:20:00 16 /min Comm on [facility] blood pressure 2021-12-27 16:20:00 135 mm[Hg] Common [facility] - systolic [facility] blood pressure 2021-12-27 16:20:00 76 mm[Hg] Common [facility] - diastolic [facility] height 2021-12-26 14:30:00 63 [in_i] Common S [facility] weight 2021-12-26 14:30:00 231 [lb_av] [facility] S [facility] temperature 2021-12-26 14:30:00 97.6 [degF] Common S pirit [facility] bmi 2021-12-26 14:30:00 40.92 kg/m2 Common S pirit [facility] oximetry 2021-12-26 14:30:00 99 % [facility] 2021-12-26 14:30:00 16 /min Comm on [facility] blood pressure 2021-12-26 14:30:00 167 mm[Hg] Common [facility] - systolic [facility] blood pressure 2021-12-26 14:30:00 92 mm[Hg] Common [facility] - diastolic [facility] height 2021-10-20 15:30:00 63 [in_i] Common S pirit [facility] weight 2021-10-20 15:30:00 235.8 [lb_av] Common [facility] temperature 2021-10-20 15:30:00 98.6 [degF] Common S pirit [facility] bmi 2021-10-20 15:30:00 41.77 kg/m2 Common S [facility] oximetry 2021-10-20 15:30:00 97 % Common S pirit [facility] respiratory rate 2021-10-20 15:30:00 16 /min Comm on [facility] blood pressure 2021-10-20 15:30:00 175 mm[Hg] [facility] - systolic [facility] blood pressure 2021-10-20 15:30:00 86 mm[Hg] [facility] - diastolic [facility] height 2021-08-31 14:00:00 63 [in_i] Common [facility] weight 2021-08-31 14:00:00 229.8 [lb_av] Common [facility] temperature 2021-08-31 14:00:00 95.9 [degF] [facility] 2021-08-31 14:00:00 40.70 kg/m2 Common S [facility] oximetry 2021-08-31 14:00:00 97 % [facility] 2021-08-31 14:00:00 16 /min Comm on [facility] blood pressure 2021-08-31 14:00:00 128 mm[Hg] [facility] - systolic [facility] blood pressure 2021-08-31 14:00:00 76 mm[Hg] [facility] - diastolic [facility] height 2021-08-18 13:00:00 63 [in_i] Common S pirit [facility] weight 2021-08-18 13:00:00 227 [lb_av] Common S pirit [facility] temperature 2021-08-18 13:00:00 96.9 [degF] Common S pirit [facility] bmi 2021-08-18 13:00:00 40.21 kg/m2 Common S pirit - [facility] blood pressure 2021-08-18 13:00:00 139 mm[Hg] [facility] - systolic [facility] blood pressure 2021-08-18 13:00:00 80 mm[Hg] Common [facility] - diastolic [facility] height 2021-04-27 14:30:00 63 [in_i] Common S [facility] weight 2021-04-27 14:30:00 238.4 [lb_av] [facility] temperature 2021-04-27 14:30:00 97.9 [degF] Common S [facility] bmi 2021-04-27 14:30:00 42.23 kg/m2 [facility] oximetry 2021-04-27 14:30:00 95 % [facility] respiratory rate 2021-04-27 14:30:00 19 /min Comm on [facility] blood pressure 2021-04-27 14:30:00 132 mm[Hg] Common [facility] - systolic [facility] blood pressure 2021-04-27 14:30:00 72 mm[Hg] [facility] diastolic [facility] Procedures This patient has no known procedures. Encounters Start End Encounter Admission Attending Care Care Encounter Source Date/Time Date/Time Type Type Clinicians Facility Department ID 2023-03-05 Outpatient Brambila, STLMLC [facility] [id number] Common 09:04:00 Pepe [id number] [facility] 2022-07-12 Outpatient Brambila, ST[facility] [id number] Common 13:54:02 Pepe [facility] 2022-07-11 Outpatient Brambila, STLC [facility] [id number] Common 11:41:02 Pepe [id number] [facility] 2022-07-10 Outpatient Brambila, STLC [facility] [id number] Common 09:25:01 Pepe [facility] 2022-06-28 Outpatient Brambila, STLMLC [facility] [id number] Common 12:56:01 Pepe [facility] 2022-04-12 Outpatient Brambila, STLMLC STL[facility] [id number] Common 14:05:01 Pepe [facility] 2021-11-30 Outpatient Brambila, STLMLC STL[facility] [id number] Common 11:12:02 Pepe [facility] 2021-10-20 Outpatient Brambila, STLMLC STL[facility]C [id number] Common 15:01:02 Pepe [facility] 2021-08-17 Outpatient Brambila, STLMLC STL[facility]C [id number] Common 12:49:40 Pepe [id number] [facility] 2021-08-17 Outpatient Brambila, STLMLC STL[facility]C [id number] Common 12:38:48 Pepe [id number] [facility] 2021-08-17 Outpatient STLMLC STL[facility]C [id number] Common 12:37:49 [id number] [facility] 2022-09-04 2022-09-04 (TEL) STLMLC STL[facility]C [id number] Co mmon 00:00:00 00:00:00 [facility] 2022-08-28 2022-08-28 OFFICE STLMLC STLMLC [id number] Co mmon 00:00:00 00:00:00 VISIT [facility] ESTAB PT - CHI LEVEL 1 [facility] 2022-07-12 2022-07-12 OFFICE STLMLC STLMLC [id number] Co mmon 00:00:00 00:00:00 VISIT Spirit ESTAB PT - CHI LEVEL 4 [facility] 2022-06-28 2022-06-28 OFFICE STLMLC STLMLC [id number] Co mmon 00:00:00 00:00:00 VISIT EST Spir it PT LEVEL 3 - [facility] 2022-06-08 2022-06-08 (WEB) STLMLC STLMLC [id number] Co mmon 00:00:00 00:00:00 Spirit - CHI [facility] 2022-04-12 2022-04-12 OFFICE STLMLC STLMLC [id number] Co mmon 00:00:00 00:00:00 VISIT [facility] ESTAB PT - CHI LEVEL 4 [facility] 2022-04-10 2022-04-10 (TEL) STLMLC STLMLC [id number] Co mmon 00:00:00 00:00:00 [facility] 2021-12-27 2021-12-27 (WELLNESS) STLMLC STLMLC [id number] Common 00:00:00 00:00:00 Wellness Spiri t Visit [facility] 2021-12-26 2021-12-26 OFFICE STLMLC STLMLC [id number] Co mmon 00:00:00 00:00:00 VISIT EST Spir it PT LEVEL 3 - [facility] 2021-11-30 2021-11-30 (TEL) STLMLC STLMLC [id number] Co mmon 00:00:00 00:00:00 Spirit [facility] 2021-10-20 2021-10-20 OFFICE STLMLC STLMLC [id number] Co mmon 00:00:00 00:00:00 VISIT NEW Spir it PT LEVEL 5 - [facility] 2021-08-31 2021-08-31 (TEL) STLMLC STLMLC [id number] Co mmon 00:00:00 00:00:00 Spirit - [facility] 2021-08-31 2021-08-31 OFFICE STLMLC STLMLC [id number] Co mmon 00:00:00 00:00:00 VISIT EST Spir it PT LEVEL 3 - [facility] 2021-08-18 2021-08-18 OFFICE STLMLC STLMLC [id number] Co mmon 00:00:00 00:00:00 VISIT Spirit ESTAB PT - [facility] LEVEL 4 [facility] 2021-04-27 2021-04-27 OFFICE STLMLC STLMLC [id number] Co mmon 00:00:00 00:00:00 VISIT Spirit ESTAB PT - [facility] LEVEL 4 [facility] 2021-01-27 2021-01-27 Outpatient STLMLC STLMLC [id number] Common 00:00:00 00:00:00 [facility] 2020-11-08 2020-11-08 Outpatient STLMLC STLMLC [id number] Common 00:00:00 00:00:00 [facility] 2020-10-28 2020-10-28 Outpatient STLMLC STLMLC [id number] Common 00:00:00 00:00:00 [facility] 2020-09-28 2020-09-28 Outpatient STLMLC STLC [id number] Common 00:00:00 00:00:00 [facility] Results Test Description Test Time Test Comments Results Result Comments Source Urine Culture,Comprehensive 2021-08-31 00:00:00 Test Item Value Reference Range Interpretation Comme nts Urine Culture,Comprehensive (test code = 630-4) Final report
[2023-05-11 14:06] LABS: Absolute Lymphocytes (CBC) 2.2 K/uL (0.7-4.9); Hematocrit 28.1 % (36.0-45.0); Lymphocytes % 36.8 % (15.3-44.8); MCV 77.4 fL (80-100); MPV 7.7 fL (7.6-11.3); Platelets 324 thou/uL (152-406); RBC Red Blood Cell Count 3.63 M/uL (3.86-4.86)
[2023-05-11 14:10] LABS: Protime INR 1.05
[2023-05-11 14:25] LABS: Albumin 3.4 g/dL (3.4-5.0); Bilirubin Direct 0.1 mg/dL (0-0.2); Bilirubin Indirect, Calculated 0.3 mg/dL (0.2-0.8); Bilirubin Total 0.4 mg/dL (0.2-1.0); Magnesium 2.1 mg/dL (1.6-2.4); Potassium 3.7 mEq/L (3.5-5.1); Protein, Total 6.8 g/dL (6.4-8.2); Troponin High Sensitivity 7.7 pg/mL (<58.9)
--- NOTE | 2023-05-11 14:26 | RAD REPORT ---
EXAM DESCRIPTION: US - Extremity Venous Uni Ltd - 05/11/2023 2:12 pm CLINICAL HISTORY: Pain COMPARISON: None. TECHNIQUE: Real-time sonographic evaluation of the left lower extremity deep venous system was perfo rmed. FINDINGS: Normal compressibility, flow augmentation, phasic flow and spontaneous flow is identified in the left lower extremity deep venous system. No intraluminal filling defects seen. IMPRESSION: No DVT in the left lower extremity.
--- NOTE | 2023-05-11 15:19 | RAD REPORT ---
EXAM DESCRIPTION: CT - Chest For Pe Angio - 05/11/2023 2:36 pm CLINICAL HISTORY: DYSPNEA COMPARISON: Chest For Pe Angio dated 01/27/2019; CTANGIO CHEST FOR PE dated 07/19/2011 TECHNIQUE: Thin axial CT images of the chest were obtained following administration of 100 mL Isovue 370 IV contrast. Multiplanar reconstructions, and maximum intensity projection reconstructions were generated and reviewed. Exam utilizes a protocol for optimal evaluation of pulmonary arterial tree. All CT scans are performed using dose optimization technique as appropriate and may include automated exposure control or mA/KV adjustment according to patient size. FINDINGS: Pulmonary arteries are normal. No emboli or other suspicious finding. No acute findings of the aorta. Mild fusiform aneurysmal dilation of the ascending thoracic aorta, measuring 4.2 cm in ca liber, stable. Surgical clips along the thoracic trachea again seen, may relate to prior thyroid surgery. No mass or infiltrate in the lung parenchyma. No pleural thickening or pleural effusion. No pneumotho rax. No abnormal mediastinal or hilar masses or lymphadenopathy seen. No chest wall mass or abnormal axill iary lymphadenopathy. Sequelae of gastric bypass. IMPRESSION: No evidence of acute central pulmonary emboli. No other acute findings in the chest. Stable mild fusiform aneurysmal dilation of the ascending thora cic aorta. .
--- NOTE | 2023-05-11 15:29 | ER ---
Nurse's Notes [facility] Name: Candice Vega Age: 62 yrs Sex: Female : 1960 Arrival Date: 05/11/2023 Time: 13:25 Bed 14 Private MD: Pepe Brambila Diagnosis: Cellulitis of left lower limb Presentation: 05/11 13:29 Chief complaint: Patient states: I woke up this morning with redness and slight mb9 swelling in my leftleg. My leg is throbbing and I have a history of DVTs and now I'm SOB.". Coronavirus screen: Vaccine status: Patient reports receiving the 2nd dose of the covid vaccine. Ebola Screen: No symptoms or risks identified at this time. Initial Sepsis Screen: Does the patient meet any 2 criteria? No. Patient's initial sepsis screen is negative. Does the patient have a suspected source of infection? No. Patient's initial sepsis screen is negative. Risk Assessment: Do you want to hurt yourself or someone else? Patient reports no desire to harm self or others. Onset of symptoms was May 11, 2023. 13:29 Method Of Arrival: Ambulatory mb9 13:29 Acuity: VICTOR MANUEL 3 mb9 Triage Assessment: 13:36 General: Appears uncomfortable, Behavior is calm, cooperative. Pain: Complains of pain mb9 in left leg Quality of pain is described as throbbing. Neuro: Steele Agitation-Sedation Scale (RASS): 0 - Alert and Calm Level of Consciousness is awake, alert, obeys commands, Oriented to person, place, time, situation, Appropriate for age. Cardiovascular: Patient's skin is warm and dry. Respiratory: Reports shortness of breath on exertion Airway is patent Respiratory effort is even, unlabored, Respiratory pattern is regular, symmetrical. Derm: Skin is pink, warm \\T\\ dry. Musculoskeletal: Swelling present in left leg. Historical: - Allergies: 13:30 Azithromycin; mb9 13:30 Codeine; mb9 13:30 mushrooms; mb9 13:30 PENICILLINS; mb9 - Home Meds: 13:30 lisinopril 10 mg Oral tab 1 tab once daily [Active]; levothyroxine 100 mcg oral capsule mb9 [Active]; - PMHx: 13:30 DVT; Hypertension; Hypothyroidism; PE; mb9 - PSHx: 13:30 Tonsillectomy; Appendectomy; section; Thyroidectomy; Cholecystectomy; Total mb9 abdominal hysterectomy; - Immunization history:: Adult Immunizations up to date. - Social history:: Smoking status: Patient denies any tobacco usage or history of. - Family history:: not pertinent. Screenin:01 [facility] ED Fall Risk Assessment (Adult) History of falling in the last 3 months, me1 including since admission No falls in past 3 months (0 pts) Confusion or Disorientation No (0 pts) Intoxicated or Sedated No (0 pts) Impaired Gait No (0 pts) Mobility Assist Device Used No (0 pt) Altered Elimination No (0 pt) Score/Fall Risk Level 0 - 2 = Low Risk. Abuse screen: Denies threats or abuse. Nutritional screening: No deficits noted. Tuberculosis screening: No symptoms or risk factors identified. Assessment: 14:01 General: Appears uncomfortable, well groomed, well developed, Behavior is calm, me1 cooperative, appropriate for age, Reports woke up this morning with swelling to left leg and throbbing pain as well as a warm area to the medial lower leg. Hx: DVT. Reports some sob. Pain: Complains of pain in medial aspect of left calf Pain does not radiate. Pain currently is 5 out of 10 on a pain scale. Quality of pain is described as throbbing, Pain began upon waking this morning. Is continuous. Neuro: Level of Consciousness is awake, alert, obeys commands, Oriented to person, place, time, situation, Appropriate for age. Cardiovascular: Capillary refill < 3 seconds Patient's skin is warm and dry. Respiratory: Airway is patent Respiratory effort is even, unlabored, Respiratory pattern is regular, symmetrical, Parent/caregiver reports the patient having shortness of breath on exertion. Musculoskeletal: Capillary refill < 3 seconds, in bilateral toes. Swelling present in medial aspect of left calf redness and warmth to medial aspect of lower leg. Reports pain in medial aspect of left calf since this morning.. Vital Signs: 13:29 BP 132 / 84; Pulse 91; Resp 20; Temp 98.2; Pulse Ox 97% on R/A; Weight 104.33 kg; mb9 Height 5 ft. 3 in. ; Pain 5/10; 13:50 BP 113 / 72; Pulse 82; Resp 19; Pulse Ox 98% on R/A; me1 14:15 BP 109 / 54; Pulse 80; Resp 16; Pulse Ox 97% on R/A; me1 13:29 Body Mass Index 40.74 (104.33 kg, 160.02 cm) mb9 13:29 Pain Scale: Adult 9 ED Course: 13:27 Patient arrived in ED. mr 13:27 Ppee Brambila DO is Private Physician. mr 13:27 Kev Galindo MD is Attending Physician. rt 13:30 Triage completed. mb9 13:33 Arm band placed on. mb9 13:43 Nena Granado, RN is Primary Nurse. me1 13:56 Inserted saline lock: 22 gauge in right antecubital area, using aseptic technique. me1 13:57 Basic Metabolic Panel Sent. me1 13:57 CBC with Diff Sent. me1 13:57 LFT's Sent. me1 13:57 Magnesium Sent. me1 13:57 NT PRO-BNP Sent. me1 13:57 PT-INR Sent. me1 13:57 Troponin HS Sent. me1 14:01 Patient has correct armband on for positive identification. Bed in low position. Call me1 light in reach. Side rails up X 1. Provided Education on: POC. Verbalized understanding.. 14:01 No provider procedures requiring assistance completed. me1 14:14 Extremity Venous Uni Ltd US In Process Unspecified. EDMS 14:37 CT Chest For PE Angio In Process Unspecified. EDMS 15:28 Pepe Brambila DO is Referral Physician. rt 15:41 IV discontinued, intact, bleeding controlled, No redness/swelling at site. Pressure me1 dressing applied. Administered Medications: No medications were administered Medication: 14:01 VIS not applicable for this client. me1 Outcome: 15:29 Discharge ordered by . rt 15:41 Discharged to home ambulatory, me1 15:41 Condition: stable 15:41 Discharge instructions given to patient, Instructed on discharge instructions, follow up and referral plans. medication usage, Demonstrated understanding of instructions, follow-up care, medications, Prescriptions given X 1, 15:41 Patient left the ED. me1 Signatures: Dispatcher [employer] EDMN Marge Bustillo, Reg Reg mr ThomasMarge RN RN mb9 Kev Galindo MD MD rt Nena Granado, RN RN me1 Corrections: (The following items were deleted from the chart) 13:36 13:29 Chief complaint: Patient states: I woke up this morning with redness and slight mb9 swelling in my right leg. My leg is throbbing and I have a history of DVTs and now I'm SOB." mb9
--- NOTE | 2023-05-11 15:29 | EDPHYS ---
Physician Documentation [facility] Name: Candice Vega Age: 62 yrs Sex: Female : 1960 Arrival Date: 05/11/2023 Time: 13:25 Bed 14 Private MD: Pepe Brambila ED Physician Kev Galindo HPI: 05/11 13:53 This 62 yrs old Female presents to ER via Ambulatory with complaints of Leg Swelling. rt 13:53 Patient with history of provoked DVT/PE about 20 years ago (not currently on rt anticoagulation) presents to the ED with left lower extremity pain, swelling started today. She does report a mild shortness of breath when she walks but denies any chest pain at this time. She reports a mild redness to her left leg. Denies other acute complaints at this time, symptoms are moderate severity, no other aggravating or elevating factors.. Historical: - Allergies: 13:30 Azithromycin; mb9 13:30 Codeine; mb9 13:30 mushrooms; mb9 13:30 PENICILLINS; mb9 - Home Meds: 13:30 lisinopril 10 mg Oral tab 1 tab once daily [Active]; levothyroxine 100 mcg oral capsule mb9 [Active]; - PMHx: 13:30 DVT; Hypertension; Hypothyroidism; PE; mb9 - PSHx: 13:30 Tonsillectomy; Appendectomy; section; Thyroidectomy; Cholecystectomy; Total mb9 abdominal hysterectomy; - Immunization history:: Adult Immunizations up to date. - Social history:: Smoking status: Patient denies any tobacco usage or history of. - Family history:: not pertinent. ROS: 13:53 Constitutional: Negative for fever, chills, and weight loss, Cardiovascular: Negative rt for chest pain, palpitations, and edema, Abdomen/GI: Negative for abdominal pain, nausea, vomiting, diarrhea, and constipation, Skin: Negative for injury, rash, and discoloration, Neuro: Negative for headache, weakness, numbness, tingling, and seizure, Psych: Negative for depression, anxiety, suicide ideation, homicidal ideation, and hallucinations, 13:53 Respiratory: Positive for shortness of breath, Negative for cough, 13:53 MS/extremity: Positive for pain, swelling, Exam: 13:53 Constitutional: This is a well developed, well nourished patient who is awake, alert, rt and in no acute distress. Head/Face: Normocephalic, atraumatic. Chest/axilla: Normal chest wall appearance and motion. Nontender with no deformity. No lesions are appreciated. Cardiovascular: Regular rate and rhythm with a normal S1 and S2. No gallops, murmurs, or rubs. Normal PMI, no JVD. No pulse deficits. Respiratory: Lungs have equal breath sounds bilaterally, clear to auscultation and percussion. No rales, rhonchi or wheezes noted. No increased work of breathing, no retractions or nasal flaring. Abdomen/GI: Soft, non-tender, with normal bowel sounds. No distension or tympany. No guarding or rebound. No evidence of tenderness throughout. Neuro: Awake and alert, GCS 15, oriented to person, place, time, and situation. Cranial nerves II-XII grossly intact. Motor strength 5/5 in all extremities. Sensory grossly intact. Cerebellar exam normal. Normal gait. Psych: Awake, alert, with orientation to person, place and time. Behavior, mood, and affect are within normal limits. 13:53 Musculoskeletal/extremity: Mildly swollen distal left lower extremity compared to the right. There is a very small area of erythema just medial to the calf. Mild tenderness at this area. Pulses, motor, sensation intact. 14:31 ECG was reviewed by the Attending Physician. rt Vital Signs: 13:29 BP 132 / 84; Pulse 91; Resp 20; Temp 98.2; Pulse Ox 97% on R/A; Weight 104.33 kg; mb9 Height 5 ft. 3 in. ; Pain 5/10; 13:50 BP 113 / 72; Pulse 82; Resp 19; Pulse Ox 98% on R/A; me1 14:15 BP 109 / 54; Pulse 80; Resp 16; Pulse Ox 97% on R/A; me1 13:29 Body Mass Index 40.74 (104.33 kg, 160.02 cm) mb9 13:29 Pain Scale: Adult mb9 MDM: 13:33 Patient medically screened. rt 15:30 Differential Diagnosis Cellulitis, DVT, PE, CHF. Data reviewed: vital signs, nurses rt notes, lab test result(s), EKG, radiologic studies. Independent interpretation of the following test(s) in the Emergency Department CT Scan: My interpretation is No edema seen on interpretation of CT scan images. Counseling: I had a detailed discussion with the patient and/or guardian regarding the historical points, exam findings, and any diagnostic results supporting the discharge/admit diagnosis, lab results, radiology results, the need for outpatient follow up, to return to the emergency department if symptoms worsen or persist or if there are any questions or concerns that arise at home. 05/11 13:44 Order name: Basic Metabolic Panel; Complete Time: 14:28 rt 05/11 13:44 Order name: CBC with Diff; Complete Time: 14:28 rt 05/11 13:44 Order name: LFT's; Complete Time: 14:28 rt 05/11 13:44 Order name: Magnesium; Complete Time: 14:28 rt 05/11 13:44 Order name: NT PRO-BNP; Complete Time: 14:28 rt 05/11 13:44 Order name: PT-INR; Complete Time: 14:28 rt 05/11 13:44 Order name: Troponin HS; Complete Time: 14:28 rt 05/11 13:44 Order name: CT Chest For PE Angio; Complete Time: 15:20 rt 05/11 13:44 Order name: Extremity Venous Uni Ltd US; Complete Time: 14:28 rt 05/11 13:44 Order name: EKG; Complete Time: 13:45 rt 05/11 13:44 Order name: Cardiac monitoring; Complete Time: 14:29 rt 05/11 13:44 Order name: EKG - Nurse/Tech; Complete Time: 14:29 rt 05/11 13:44 Order name: IV Saline Lock; Complete Time: 13:57 rt 05/11 13:44 Order name: Labs collected and sent; Complete Time: 13:57 rt 05/11 13:44 Order name: O2 Per Protocol; Complete Time: 13:45 rt 05/11 13:44 Order name: O2 Sat Monitoring; Complete Time: 13:45 rt EC:31 Rate is 71 beats/min. Rhythm is regular, Normal Sinus Rhythm with No ectopy. QRS [place] rt is Normal. [place] interval is normal. QRS interval is normal. QT interval is normal. No Q waves. Clinical impression: NSR w/ Non-specific ST/T Changes. Administered Medications: No medications were administered Disposition Summary: 05/11/23 15:29 Discharge Ordered Notes: Location: Home rt Problem: new rt Symptoms: are unchanged rt Condition: Stable rt Diagnosis - Cellulitis of left lower limb rt Followup: rt - With: Pepe Brambila DO - When: 5 - 6 days - Reason: Discharge Instructions: - Discharge Summary Sheet rt - Cellulitis, Adult rt Forms: - Medication Reconciliation Form rt - Thank You Letter rt - Antibiotic Education rt - Prescription Opioid Use rt - Patient Portal Instructions rt - Leadership Thank You Letter rt Prescriptions: - Doxycycline Hyclate 100 mg Oral Tablet - take 1 tablet ORAL route every 12 hours; 20 tablet; Refills: 0, Product rt Selection Permitted Signatures: Dispatcher [employer] Marge Cook RN RN mb9 Kev Galindo MD MD rt
[2023-05-11 16:25] VITALS: TEMP 98.2
[2023-05-11 16:28] VITALS: BP 109/54; O2SAT 97
--- NOTE | 2023-05-13 13:53 | EKG ---
Test Date: 2023-05-11 Test Time: 14:26:51 [employer]: SUZANNE MEASUREMENT RESULTS: Intervals: Rate: 71 NM: 142 QRSD: 76 QT: 404 QTc: 439 [place]: P: 52 NM: 142 QRS: -6 T: 36 INTERPRETIVE STATEMENTS: Normal sinus rhythm with sinus arrhythmia Nonspecific ST abnormality Abnormal ECG Compared to ECG 01/27/2019 18:09:35 ST (T wave) deviation now present Sinus bradycardia no longer present Left-axis deviation no longer present T-wave abnormality no longer present Electronically Signed On 05-13-23 13:50:41 CDT by Vj Anguiano
== END 2023-05-11 15:41 | disposition home or self-care (01) ==
LOC: ER 13:25
DX: L03.116 Cellulitis of left lower limb (principal); I10 Essential (primary) hypertension; Z86.718 Personal history of other venous thrombosis and embolism; Z79.01 Long term (current) use of anticoagulants; Z88.0 Allergy status to penicillin; Z88.1 Allergy status to other antibiotic agents; Z88.5 Allergy status to narcotic agent; Z91.018 Allergy to other foods
CPT/HCPCS: 93005; 85025; 80048; 36415; 83735; 85610; 80076; 84484; 83880; 71275; 93971; 99284; Q9967